=== PATIENT | female | born 1960 | race Caucasian/White ===

== ENCOUNTER 2021-07-23 07:31 | Outpatient (REF) | payer BC, SELFPAY ==
[2021-07-23 08:43] LABS: Alanine Aminotransferase 53 U/L (0-31); Albumin Level 4.2 g/dL (3.5-5.0); Alkaline Phosphatase 82 U/L (39-117); Aspartate Amino Transferase 43 U/L (5-31); Bilirubin Direct 0.2 mg/dL (0.0-0.5); Bilirubin Total 0.5 mg/dL (0.0-1.0); Cholesterol 196 mg/dL; HDL Cholesterol 68 mg/dL; LDL Cholesterol Calculated 114 mg/dl; Total Protein 7.3 g/dL (6.5-8.0); Triglycerides 72 mg/dL
[2021-07-23 09:05] LABS: Free T4 (Free Thyroxine) 0.76 ng/dL (0.71-1.85)
[2021-07-25 16:22] LABS: Triiodothyronine T3 Free 2.7 pg/mL (2.3-4.2)
[2021-07-27 17:32] LABS: Calcium, Ionized 5.2 mg/dL (4.8-5.6)
== END 2021-07-23 07:32 | disposition home or self-care (01) ==
LOC: HO.LAB 07:31
PROVIDERS: Absent Provider Internal Medicine; PCP Internal Medicine; Visit Provider Family Medicine
DX: E78.2 Mixed hyperlipidemia (principal); R74.01 Elevation of levels of liver transaminase levels; E03.8 Other specified hypothyroidism; M67.442 Ganglion, left hand
CPT/HCPCS: 36415; 80061; 80076; 82330; 84439; 84443; 84481

== ENCOUNTER 2022-05-05 07:58 | Outpatient (REF) | payer BC, SELFPAY ==
--- NOTE | ~2022-05-05 | MM_ITS ---
EXAMINATION: MM SCREENING DIGITAL BREAST TOMOSYNTHESIS, BILATERAL CLINICAL INFORMATION: Screening. Asymptomatic. The lifetime risk of breast cancer based on the Tyrer-Cuzick Model is 8%. COMPARISON: Mammography: 10/03/2019, 09/06/2018, 05/26/2017 TECHNIQUE: Digital breast tomosynthesis is performed in both the craniocaudal and mediolateral oblique views along with computer-aided detection (CAD). Synthesized 2D images are generated from the tomosynthesis. FINDINGS: There are scattered areas of fibroglandular density (ACR BI-RADS breast composition Category b). There are no significant masses, abnormal calcifications, or other abnormalities. Parenchymal pattern is similar to prior studies. No developing density or architectural abnormality. Mild bilateral nipple retraction is a chronic finding. MM/MM tomosynthesis screening BI IMPRESSION: No mammographic evidence of malignancy. ASSESSMENT: BI-RADS 2: Benign RECOMMENDATION: Routine annual mammography screening. This patient's information was entered into a reminder system with a target due date for their next mammogram.
== END 2022-05-05 07:59 | disposition home or self-care (01) ==
LOC: HO.MAMMO 07:58
PROVIDERS: Visit Provider Internal Medicine
DX: Z12.31 Encounter for screening mammogram for malignant neoplasm of breast (principal)
CPT/HCPCS: 77063; 77067

== ENCOUNTER 2022-10-26 11:29 | Outpatient (REF) | payer BC, SELFPAY ==
--- NOTE | ~2022-10-26 | XR_ITS ---
EXAMINATION: XR CHEST XR HAND, LEFT CLINICAL INFORMATION: Preop, malignant neoplasm of endometrium. COMPARISON: Chest 2 views 01/08/2007. TECHNIQUE: Chest 2 views. Left hand 3 views. FINDINGS: Chest: Both lungs are fairly well-expanded and clear of acute pneumonic process. Heart size and pulmonary vascularity is normal. No gross bony abnormality seen. Left Hand: There is mild loss of PIP and DIP joint space of all digits without bony erosive changes or enthesophytes. There is mild soft tissue swelling PIP joints 2nd through 5th digit. XR/XR hand LT min 3V IMPRESSION: 1. Unremarkable chest exam. 2. Mild degenerative changes PIP and DIP joints left hand. No visible acute fracture or dislocation seen. Mild soft tissue swelling PIP joints 2nd through 5th digits.
--- NOTE | ~2022-10-26 | XR_ITS ---
EXAMINATION: XR CHEST XR HAND, LEFT CLINICAL INFORMATION: Preop, malignant neoplasm of endometrium. COMPARISON: Chest 2 views 01/08/2007. TECHNIQUE: Chest 2 views. Left hand 3 views. FINDINGS: Chest: Both lungs are fairly well-expanded and clear of acute pneumonic process. Heart size and pulmonary vascularity is normal. No gross bony abnormality seen. Left Hand: There is mild loss of PIP and DIP joint space of all digits without bony erosive changes or enthesophytes. There is mild soft tissue swelling PIP joints 2nd through 5th digit. XR/XR chest 2V IMPRESSION: 1. Unremarkable chest exam. 2. Mild degenerative changes PIP and DIP joints left hand. No visible acute fracture or dislocation seen. Mild soft tissue swelling PIP joints 2nd through 5th digits.
--- NOTE | ~2022-10-26 | CT_ITS ---
EXAMINATION: CT ABDOMEN AND PELVIS WITH CONTRAST CLINICAL INFORMATION: Malignant neoplasm of the endometrium COMPARISON: None TECHNIQUE: Multidetector volumetric images were obtained from the superior aspect of the liver through the pubic symphysis following administration 85 mL of Omnipaque 350 intravenous contrast. Sagittal and coronal reformatted images were obtained on the technologist's workstation. This CT examination was performed using dose optimization techniques as appropriate, variously including the following: *Automated exposure control *Adjustment of mA and/or kV according to patient size (this includes techniques or standardized protocols for targeted exams where dose is matched to indication/reason for exam; i.e. extremities or head) *Use of iterative reconstruction technique DLP: 319 mGy-cm FINDINGS: Visualized lung bases are well aerated. The liver demonstrates normal size, contour and attenuation. The gallbladder is normal in appearance. The pancreas, spleen and adrenal glands are unremarkable. Symmetrically enhancing kidneys. There is no hydronephrosis of either kidney. The stomach is decompressed. Normal caliber loops of small and large bowel. Mild colonic stool burden. Normal caliber abdominal aorta demonstrating only minimal atherosclerotic disease. No retroperitoneal lymphadenopathy. The bladder is normal in appearance. Anteverted uterus demonstrating a thickened endometrium measuring up to 1.9 cm in thickness. Suspected partially calcified 1.5 cm fibroid of the uterine fundus. No gross free pelvic fluid. No inguinal lymphadenopathy. No acute osseous abnormality. CT/CT abdomen pelvis w IV con IMPRESSION: 1. Anteverted uterus demonstrating a thickened endometrium measuring up to 1.9 cm in thickness. Suspected partially calcified 1.5 cm fibroid of the uterine fundus. Further evaluation with dedicated pelvic ultrasound recommended. 2. No CT evidence for metastatic disease within the abdomen or pelvis. Fleischner guidelines were followed.
[2022-10-26] MEDS: Barium Sulfate Oral (Mocha) 450 ML ORAL.SUSP 900 ML PO (14:40)
[2022-10-26] MEDS: iohexoL 350 MG/ML 100 ML INFUS..BTL IV (14:40)
[2022-10-27 07:31] LABS: Creatinine POC 0.6 mg/dL (0.5-1.4); GFR POC > 60
[2022-10-27 09:02] LABS: CA-125 7 U/mL (<35)
== END 2022-10-26 11:30 | disposition home or self-care (01) ==
LOC: HO.CT 11:29
PROVIDERS: Absent Provider Internal Medicine; PCP Internal Medicine; Visit Provider Obstetrics & Gynecology
DX: Z01.818 Encounter for other preprocedural examination (principal); C54.1 Malignant neoplasm of endometrium; M79.642 Pain in left hand
CPT/HCPCS: 36415; 71046; 73130; 74177; 82565; 86304; Q9967

== ENCOUNTER 2023-06-23 07:51 | Outpatient (REF) | payer BC, SELFPAY ==
[2023-06-23 08:16] LABS: MANUAL DIFF FLAG NO
[2023-06-23 09:11] LABS: Basophils Percent Auto 1.1 % (0-2); Eosinophils Absolute Auto 0.1 X10*3/uL (0.0-0.4); Eosinophils Percent Auto 3.9 % (0-4); Hematocrit 45.9 % (37.0-47.0); Lymphocytes Absolute Auto 1.5 X10*3/uL (1.2-4.9); Lymphocytes Percent Auto 42.7 % (20-40); Mean Corpuscular HGB Conc 32.7 g/dl (31.0-35.0); Mean Corpuscular Volume 94.8 fL (80.0-98.0); Mean Platelet Volume 10.4 fL (9.4-12.3); Monocytes Absolute Auto 0.3 X10*3/uL (0.1-1.2); Neutrophils Absolute Auto 1.6 x10*3/uL (2.0-8.3); Neutrophils Percent Auto 45.3 % (45-73); Platelet Count 239 X10*3/uL (160-400); Red Blood Count 4.84 X10*6/uL (4.20-5.50); White Blood Count 3.6 X10*3/uL (4.8-10.8)
[2023-06-23 10:24] LABS: Alanine Aminotransferase 77 U/L (0-31); Albumin Level 4.4 g/dL (3.5-5.0); Alkaline Phosphatase 78 U/L (39-117); Aspartate Amino Transferase 52 U/L (5-31); Bilirubin Total 0.8 mg/dL (0.0-1.0); Blood Urea Nitrogen 16 mg/dL (9-16); Calcium 10.3 mg/dL (8.4-10.2); Chloride 104 mmol/L (96-108); Cholesterol 213 mg/dL; Estimated Glomerular Filt Rate 58; Glucose Random 89 mg/dL (60-115); HDL Cholesterol 84 mg/dL; LDL Cholesterol Calculated 111 mg/dl; Potassium 4.6 mmol/L (3.3-5.1); Sodium 143 mmol/L (135-145); Triglycerides 94 mg/dL
[2023-06-23 10:50] LABS: Anion Gap 19 (12-20); Carbon Dioxide 25 mmol/L (22-29)
[2023-06-23 11:07] LABS: Free T4 (Free Thyroxine) 0.82 ng/dL (0.71-1.85)
== END 2023-06-23 07:52 | disposition home or self-care (01) ==
LOC: HO.LAB 07:51
PROVIDERS: PCP Internal Medicine; Visit Provider Internal Medicine
DX: Z00.00 Encounter for general adult medical examination without abnormal findings (principal); R53.83 Other fatigue; E78.2 Mixed hyperlipidemia
CPT/HCPCS: 36415; 80053; 80061; 84439; 84443; 85025

== ENCOUNTER 2024-04-17 06:22 | Outpatient (REF) | payer BC, SELFPAY ==
[2024-04-17 08:46] LABS: Alanine Aminotransferase 26 U/L (0-31); Albumin Level 4.1 g/dL (3.5-5.0); Alkaline Phosphatase 58 U/L (39-117); Anion Gap 12 (12-20); Aspartate Amino Transferase 28 U/L (5-31); Bilirubin Total 0.6 mg/dL (0.0-1.0); Blood Urea Nitrogen 17 mg/dL (9-16); Calcium 9.6 mg/dL (8.4-10.2); Carbon Dioxide 30 mmol/L (22-29); Chloride 105 mmol/L (96-108); Estimated Glomerular Filt Rate 57; Glucose Random 81 mg/dL (60-115); HDL Cholesterol 87 mg/dL (>40); Potassium 4.1 mmol/L (3.3-5.1); Sodium 143 mmol/L (135-145); Total Protein 7.3 g/dL (6.5-8.0)
== END 2024-04-17 06:23 | disposition home or self-care (01) ==
LOC: HO.LAB 06:22
PROVIDERS: PCP Internal Medicine; Visit Provider Internal Medicine
DX: E78.2 Mixed hyperlipidemia (principal)
CPT/HCPCS: 36415; 80053; 83718

== ENCOUNTER 2024-07-25 15:22 | Outpatient (REF) | payer BC, SELFPAY ==
--- NOTE | ~2024-07-25 | MM_ITS ---
EXAMINATION: MM SCREENING DIGITAL BREAST TOMOSYNTHESIS, BILATERAL CLINICAL INFORMATION: Screening. Asymptomatic. COMPARISON: Mammography: Comparison is made with available priors TECHNIQUE: Digital breast mammography with tomosynthesis is performed in both the craniocaudal and mediolateral oblique views along with computer-aided detection (CAD). FINDINGS: There are scattered areas of fibroglandular density (ACR BI-RADS breast composition Category b). There are no significant masses, abnormal calcifications, or other abnormalities. MM/MM tomosynthesis screening BI IMPRESSION: No mammographic evidence of malignancy. ASSESSMENT: BI-RADS BI-RADS 1 - Negative RECOMMENDATION: Routine annual mammography screening. 1 year F/U This examination should not preclude the clinical evaluation of a suspicious palpable abnormality. This patient's information was entered into a reminder system with a target due date for their next mammogram. Electronically signed by: Vibha Covington DO 08/11/2024 03:00 PM EROS
== END 2024-07-25 15:23 | disposition home or self-care (01) ==
LOC: HO.MAMMO 15:22
PROVIDERS: PCP Internal Medicine; Visit Provider Internal Medicine
DX: Z12.31 Encounter for screening mammogram for malignant neoplasm of breast (principal)
CPT/HCPCS: 77063; 77067

== ENCOUNTER → 2024-07-25 15:30 | Outpatient (BNV) | payer BC, SELFPAY | PROVIDERS: PCP Internal Medicine; Visit Provider Internal Medicine | DX: Z12.31 Encounter for screening mammogram for malignant neoplasm of breast (principal) | CPT/HCPCS: 77063; 77067 ==

== ENCOUNTER 2025-09-05 15:19 | Outpatient (REF) | payer BC, SELFPAY ==
--- OUTSIDE RECORDS SUMMARY | 2025-03-26 10:40 | XMS_ITS ---
Author Organization [facility] Address [address], [place] [id number] Care Team Providers Care Head Athletic Trainer Name Role Phone ZAID MOHAMUD Primary Care Provider REASON FOR VISIT endometrial cancer Encounters Encounter Location Date Provider Diagnosis [facility] [address] [place] [address] 03/26/2025 ZAID MOHAMUD PLAN OF TREATMENT No Information
--- OUTSIDE RECORDS SUMMARY | 2025-03-27 10:30 | XMS_ITS ---
Author Organization [facility] Address [address], [place] [id number] Care Team Providers Care Block Cableman Name Role Phone ZAID MOHAMUD Primary Care Provider ALLERGIES Allergen (clinical drug ingredient) Drug/Non Drug Allergy documented on EMR Reaction Allergy Type Onset Date Status SKIN CLEANSER COMBINATION NO. 4 (uncoded) MINOCIN Allergy Active TOPICAL AGENT COMBINATION NO.3 (uncoded) MINOCIN Allergy Active ampicillin Ampicillin Unknown Drug Allergy Activ e Emollient Base MINOCIN Drug Allergy Ac tive Minocycline HCl MINOCIN Drug Allergy A ctive Substance with penicillin structure and antibacterial mechanism of action (substance) Penicillins Unknown Drug Allergy Active sulfanilamide Sulfanilamide Unknown Drug Allergy Active REASON FOR VISIT UC sinusitis MEDICATIONS Medication SIG (Take, Route, Frequency, Duration) Notes Start Date End Date Status Atorvastatin Calcium 10 MG 1 tablet Oral Once a day for 90 days 03/24/2023 Active Zithromax Z-Clarke 250 MG Therapy Pack Oral ly 2 tabs Day 1, then 1 tab daily x 4 days for 5 days 03/27/2025 Active SOCIAL HISTORY Tobacco Use: Social History Observation Description Date Details (start date - stop date) Never Smoker NA - NA Sex Assigned At : Social History Observation Description Sex Assigned At Unknown Smoking Question Answer Notes Are you a: never smoker PROBLEMS Problem Type ICD Code Onset Dates Problem Status W/U Status Risk SNOMED Code Notes Problem Endometrial cancer (C54.1) Active confirmed 535737182 Problem Acute non-recurrent frontal sinusitis (J01.10) Active confirmed 24056000 VITAL SIGNS Height 62 in 03/27/2025 Weight 113.6 lbs 03/27/2025 Blood pressure systolic 126 mm Hg 03/27/20 25 Blood pressure diastolic 76 mm Hg 025 BMI 20.78 kg/m2 03/27/2025 Encounters Encounter Location Date Provider Diagnosis [facility] [address] [place] [address] 03/27/2025 ZAID MOHAMUD Acute non-recurrent frontal sinusitis J01.10 ; Trigger thumb, left thumb M65.312 ; Endometrial cancer C54.1 and Weight loss R63.4 ASSESSMENTS Encounter Date Diagnosis Assessment Notes Treatment Notes Treatment Clinical Notes Section Notes 03/27/2025 Acute non-recurrent frontal sinusitis (ICD-10 - J01.10) 1. Sinusitis: Will cover with Zithromax and continue irrigation 2. Left trigger thumb: She is considering whether she would like to return to Dr. Frandy Castro who she is seen in the past 3. endometrial cancer: Small recurrence in the vaginal cuff. Surgery is planned and we will follow with Dr. Brush 4. Weight loss: Will check thyroid function 03/27/2025 Trigger thumb, left thumb (ICD-10 - M65.312) 1. Sinusitis: Will cover with Zithromax and continue irrigation 2. Left trigger thumb: She is considering whether she would like to return to Dr. Frandy Castro who she is seen in the past 3. endometrial cancer: Small recurrence in the vaginal cuff. Surgery is planned and we will follow with Dr. Brush 4. Weight loss: Will check thyroid function 03/27/2025 Endometrial cancer (ICD-10 - C54.1) 1. Sinusitis: Will cover with Zithromax and continue irrigation 2. Left trigger thumb: She is considering whether she would like to return to Dr. Frandy Castro who she is seen in the past 3. endometrial cancer: Small recurrence in the vaginal cuff. Surgery is planned and we will follow with Dr. Brush 4. Weight loss: Will check thyroid function 03/27/2025 Weight loss (ICD-10 - R63.4) 1. Sinusitis: Will cover with Zithromax and continue irrigation 2. Left trigger thumb: She is considering whether she would like to return to Dr. Frandy Castro who she is seen in the past 3. endometrial cancer: Small recurrence in the vaginal cuff. Surgery is planned and we will follow with Dr. Brush 4. Weight loss: Will check thyroid function PLAN OF TREATMENT Medication Medication Name Sig Start Date Stop Date Notes Zithromax Z-Clarke 250 MG Therapy Pack Oral ly 2 tabs Day 1, then 1 tab daily x 4 days for 5 days 03/27/2025 Progress Notes * Examination Category Sub-Category Detail Notes Category Not es General Examination HEENT: NC/AT, EOMI,PERRL, an d TM's WNL Neck: no lymphadenopathy Heart: RSR, normal S1S2 Lungs: clear to auscultatio n Extremities: no edema General Appearance no apparent distress , pleasant Oral cavity: pharnyx and tonsils normal Psych: alert, oriented X 3 Other normal affect History and Physical Notes * HPI (History of Present Illness) Category Sub-Category Detail Notes Category Not es General Patient had a recurrence of Endometrial cancer in vaginal cuff - looked like a skin tag - had negative PET - to have surgical removal 2 weeks ago had sinus sx when returned from [place] - was given Clartin and Flonase at Urgent Care - no better Copious mucus - often green
--- OUTSIDE RECORDS SUMMARY | 2025-03-31 05:52 | XMS_ITS ---
Author Organization [facility] Address [address] [place], [place] [phone] Care Team Providers Care Ring Maker Name Role Phone ZAID MOHAMUD Primary Care Provider REASON FOR VISIT thyroid lab results Encounters Encounter Location Date Provider Diagnosis [facility] [address] [place] [address] 03/31/2025 ZAID MOHAMUD Abnormal TSH R79.89 ASSESSMENTS Encounter Date Diagnosis Assessment Notes Treatment Notes Treatment Clinical Notes Section Notes 03/31/2025 Abnormal TSH (ICD-10 - R79.89) PLAN OF TREATMENT No Information
--- OUTSIDE RECORDS SUMMARY | 2025-05-05 10:55 | XMS_ITS ---
Author Organization [facility] Address [address] [place], [place] [phone] Care Team Providers Care Scroll Shear Operator Name Role Phone ZAID MOHAMUD Primary Care Provider REASON FOR VISIT (W-05/05/25) Bloodwork for Thyroid abnormal rating... Encounters Encounter Location Date Provider Diagnosis [facility] [address] [place] [address] 05/05/2025 ZAID MOHAMUD PLAN OF TREATMENT No Information
--- OUTSIDE RECORDS SUMMARY | 2025-05-06 08:55 | XMS_ITS ---
Author Organization [facility] Address [address] [place], [place] [phone] Care Team Providers Care Appointment Setter Name Role Phone ZAID MOHAMUD Primary Care Provider [phone] REASON FOR VISIT RE:Bloodwork for Thyroid abnormal rating... Encounters Encounter Location Date Provider Diagnosis [facility] [address] [place] [address] 05/06/2025 ZAID MOHAMUD PLAN OF TREATMENT No Information
--- OUTSIDE RECORDS SUMMARY | 2025-05-07 02:24 | XMS_ITS ---
Author Organization [facility] Address [address] [place], [place] [phone] Care Team Providers Care Event Decorator And Designer Name Role Phone ZAID MOHAMUD Primary Care Provider REASON FOR VISIT lab PROBLEMS Problem Type ICD Code Onset Dates Problem Status W/U Status Risk SNOMED Code Notes Problem Subclinical hyperthyroidism (E05.90) Active confirmed 441201368 Encounters Encounter Location Date Provider Diagnosis [facility] [address] [place] [address] 05/07/2025 ZAID BUSCHFORD Subclinical hyperthyroidism E05.90 ASSESSMENTS Encounter Date Diagnosis Assessment Notes Treatment Notes Treatment Clinical Notes Section Notes 05/07/2025 Subclinical hyperthyroidism (ICD-10 - E05.90) PLAN OF TREATMENT Future Test Test Name Order Date T4 Free Direct (Thyroxine)-[id number] 2024 TSH-[id number] 05/07/2025
--- OUTSIDE RECORDS SUMMARY | 2025-07-08 08:36 | XMS_ITS ---
Author Organization [facility] Address [address], [place] [phone] Care Team Providers Care Manifold Builder Name Role Phone ZAID MOHAMUD Primary Care Provider REASON FOR VISIT Pinched Nerve Encounters Encounter Location Date Provider Diagnosis [facility] [address] [place] [address] 07/08/2025 ZAID MOHAMUD PLAN OF TREATMENT No Information
--- OUTSIDE RECORDS SUMMARY | 2025-07-11 12:00 | XMS_ITS ---
Author Organization [facility] Address [address] [place], [place] [phone] Care Team Providers Care Fine Jewelry Sales Associate Name Role Phone ZAID MOHAMUD Primary Care [...] Sulfanilamide Unknown Drug Allergy Active REASON FOR REFERRAL Reason Appt PT Eval and jon at Diagnosis 1 Cervical radiculopat hy (M54.12) Referral Organization [facility] Referring Provider First Name ZAID Referring Provider Last Name CADE Referring Provider Speciality Internal M edicine Referred Provider Specialty Physical The rapy Referral Priority Routine REASON FOR VISIT Pinched Nerve MEDICATIONS Medication SIG (Take, Route, Frequency, Duration) Notes Start Date End Date Status Atorvastatin Calcium 10 MG 1 tablet Oral ly Once a day for 90 days Active SOCIAL HISTORY Tobacco Use: Social History Observation Description Date Details (start date - stop date) Never Smoker NA - NA Sex Assigned At : Social History Observation Description Sex Assigned At Unknown Smoking Question Answer Notes Are you a: never smoker PROBLEMS Problem Type ICD Code Onset Dates Problem Status W/U Status Risk SNOMED Code Notes Problem Cervical radiculopathy (M54.12) Active confirmed 28021609 VITAL SIGNS Height 62 in 07/11/2025 Weight 117.6 lbs 07/11/2025 Blood pressure systolic 118 mm Hg 07/11/20 25 Blood pressure diastolic 76 mm Hg 025 BMI 21.51 kg/m2 07/11/2025 Encounters Encounter Location Date Provider Diagnosis [facility] [address] [place] [address] 07/11/2025 ZAID MOHAMUD Cervical radiculopat hy M54.12 ASSESSMENTS Encounter Date Diagnosis Assessment Notes Treatment Notes Treatment Clinical Notes Section Notes 07/11/2025 Cervical radiculopathy (ICD-10 - M54.12) 1. Cervical radiculopathy: Suspected clinically by history and on exam. Will refer for physical therapy and if not beneficial pursue advanced imaging. Will also attempt an EMG. PLAN OF TREATMENT Pending Test Test Name Order Date EMG Upper Extremity Bilateral 07/11/2025 Referrals Referral Date Details Appt PT Eval and jon at Progress Notes * Examination Category Sub-Category Detail Notes Category Not es General Examination Heart: RSR, normal S1S2 Lungs: clear to auscultatio n Extremities: no edema General Appearance no apparent distress , pleasant Psych: alert, oriented X 3 Other normal affect Musculoskeletal Some pain with range of motion of the neck Mild tenderness to palpation over the cervical spinous processes History and Physical Notes * HPI (History of Present Illness) Category Sub-Category Detail Notes Category Not es General Patient present s with intermittent pain in her hands. She awakens with symptoms at night and reports they are severe at times. She reports symptoms alternate from 1 side to the other and are not usually bilateral simultaneously. She has some neck stiffness. She gets some numbness and tingling in the upper extremities. She has not had a loss of strength. Consultation Request Notes Referral Date Referring Provider Referred Provider Not es 07/11/2025 ZAID MOHAMUD , Appt PT Eval a nd treat
--- OUTSIDE RECORDS SUMMARY | 2025-08-05 11:34 | XMS_ITS ---
Author Organization [facility] Address [address] [place], [place] [phone] Care Team Providers Care Clinical Biostatistics Director Name Role Phone ZAID MOHAMUD Primary Care Provider REASON FOR VISIT New Refill Request Encounters Encounter Location Date Provider Diagnosis [facility] [address] [place] [address] 08/05/2025 ZAID MOHAMUD PLAN OF TREATMENT No Information
--- OUTSIDE RECORDS SUMMARY | 2025-08-18 08:34 | XMS_ITS ---
Author Organization [facility] Address [address], [place] [address] Care Team Providers Care Collar Baster Name Role Phone ZAID MOHAMUD Primary Care Provider REASON FOR VISIT 2 things... EMG and DNA Encounters Encounter Location Date Provider Diagnosis [facility] [address] [place] [address] 08/18/2025 ZAID MOHAMUD PLAN OF TREATMENT No Information
--- NOTE | ~2025-09-05 | MM_ITS ---
EXAMINATION: MM SCREENING DIGITAL BREAST TOMOSYNTHESIS, BILATERAL CLINICAL INFORMATION: Screening. Asymptomatic. COMPARISON: Mammography: Comparison is made with available priors TECHNIQUE: Digital breast mammography with tomosynthesis is performed in both the craniocaudal and mediolateral oblique views along with computer-aided detection (CAD). FINDINGS: There are scattered areas of fibroglandular density. There are no significant masses, abnormal calcifications, or other abnormalities. MM/MM tomosynthesis screening BI IMPRESSION: No mammographic evidence of malignancy. ASSESSMENT: BI-RADS Category 1: Negative RECOMMENDATION: Routine annual mammography screening. 1 year F/U This examination should not preclude the clinical evaluation of a suspicious palpable abnormality. This patient's information was entered into a reminder system with a target due date for their next mammogram. Electronically signed by: Vibha Covington DO 09/08/2025 05:51 PM EDT
--- OUTSIDE RECORDS SUMMARY | 2025-09-05 17:51 | XMS_ITS | Clinical Summary ---
Author Organization [facility] Address [address] [place] [address] Phone Care Team Providers Care Ironer Name Role Phone Dominick Parekh MD Primary Care Provider [phone] Derick Brush MD Unavailable [phone] Allergies Active Allergy Reactions Criticality Noted Date Comments Penicillins 07/03/2022 Sulfa (Sulfonamide Antibiotics) 06/20 Medications No known medications Active Problems No known active problems Immunizations Immunization Administration Dates Next Due Tdap 07/03/2022 Social History Tobacco Use Types Packs/Day Years Used Date Smoking Tobacco: Never Smokeless Tobacco: Never Alcohol Use Standard Drinks/Week Comments Yes 2 (1 standard drink = 0.6 oz pur e alcohol) Education Answer Date Recorded Are you interested in more education? Not on teresa e 03/17/2023 Are you concerned about learning? Not on file 03/17/2023 No 03/17/2023 No 03/17/2023 Digital Access Answer Date Recorded No 04/14/2023 No 04/14/2023 Reliable internet access at home? Not on file 04/14/2023 Device with a working camera? Not on file Comments No Sex and Gender Information Value Date Recorded Sex Assigned at Female 07/03/2022 4:35 PM EDT Legal Sex Female 9:46 PM EDT Gender Identity Female 07/03/2022 4:35 PM EDT Sexual Orientation Not on file Last Filed Vital Signs Vital Sign Reading Time Taken Comments Blood Pressure 142/87 07/03/2022 5:23 PM EDT Pulse 62 09/02/2014 11:49 AM EDT Temperature 36.9 C (98.4 F) 07/03/2022 5:23 PM EDT Respiratory Rate - - Oxygen Saturation 100% 07/03/2022 5:23 PM EDT Inhaled Oxygen Concentration - - Weight 54.4 kg (120 lb) 04/04/2023 2:32 PM EDT Height 157.5 cm (5' 2 ) 04/04/2023 2:32 PM EDT Body Mass Index 21.95 04/04/2023 2:32 PM EDT Plan of Treatment Health Maintenance Due Date Last Done Comments LIPID PANEL 1961 DEPRESSION SCREENING 1973 HEPATITIS C SCREENING 1979 HIV ONE-TIME SCREENING (18-65 YEARS) 1979 PAP SMEAR 1982 COLOGUARD 2006 COLONOSCOPY 2006 COLORECTAL CANCER SCREENING 2006 FIT TEST 2006 FOBT 2006 SIGMOIDOSCOPY 2006 VIRTUAL COLONOSCOPY 2006 PNEUMOCOCCAL VACCINES (50+ years) (1 of 1 - PCV) 2011 ZOSTER VACCINES (1 of 2) 2011 MAMMOGRAM 04/10/2025 04/10/2023 INFLUENZA VACCINE (#1) 2025 2, 09/01/2020, 01/28/2020 COVID-19 VACCINE (2024- season) 2025 08/07/2022, 03/27/2022, 10/12/2021, Additional history exists Adult Td,Tdap Booster 07/03/2032 07/03/2022 RSV VACCINE (1 - 1-dose 75+ series) 2036 SMOKING STATUS SCREENING (Once After 26 Yrs) Completed 07/04/2022 HEPATITIS A VACCINES Aged Out No long er eligible based on patient's age to complete this topic HIB VACCINES Aged Out No longer eligi ble based on patient's age to complete this topic MENINGOCOCCAL VACCINES (ACWY) Aged Out No longer eligible based on patient's age to complete this topic MENINGOCOCCAL VACCINES (B) Aged Out N o longer eligible based on patient's age to complete this topic Medical Devices Not on file Procedures Procedure Name Priority Date/Time Associated Diagnosis Comments BI MRI BREAST WITH AND WITHOUT CONTRAST (BILATERAL) Routine 04/10/2023 7:09 PM EDT Malignant neoplasm of endometrium from Last 3 Months or Most Recently Relevant to Health Maintenance Results * BI MRI BREAST WITH AND WITHOUT CONTRAST (BILATERAL) (04/10/2023 7:09 PM EDT) Anatomical Region Laterality Modality Breast Left, Breast Right, Breast Bilateral Bila teral Magnetic Resonance 04/14/2023 12:5 3 PM EDT Impressions 04/14/2023 1:22 PM EDT No evidence of malignancy. BI-RADS Category 1, negative Narrative 04/14/2023 1:22 PM EDT History: Nipple inversion. History of GEOLOGIST cancer (endometrial CA) status post hysterectomy. PROCEDURE: Bilateral breast imaging performed prior to and during dynamic infusion of IV gadolinium. Subtracted postcontrast enhanced images available. Sagittal reconstructions. FINDINGS: No prior breast imaging available for comparison/correlation. Breast tissue consists of a combination of fatty and fibroglandular elements. Background parenchymal enhancement: Moderate right and mild left. Bilateral nipple inversion evident. T2 bright signal extends along ductal system immediately posterior to the nipple bilaterally, fairly symmetric appearance evident. No discrete mass evident affecting either breast. No aggressive enhancement. No concerning incidental abnormality identified affecting chest wall, lungs or upper abdomen. Procedure Note El Kemp MD - 04/14/2023 History: Nipple inversion. History of GEOLOGIST cancer (endometrial CA) statuspost hysterectomy. PROCEDURE: Bilateral breast imaging performed prior to and during dynamicinfusion of IV gadolinium. Subtracted postcontrast enhanced imagesavailable. Sagittal reconstructions. FINDINGS: No prior breast imaging available for comparison/correlation. Breast tissue consists of a combination of fatty and fibroglandularelements. Background parenchymal enhancement: Moderate right and mild left. Bilateral nipple inversion evident. T2 bright signal extends along ductalsystem immediately posterior to the nipple bilaterally, fairly symmetricappearance evident. No discrete mass evident affecting either breast. Noaggressive enhancement. No concerning incidental abnormality identified affecting chest wall,lungs or upper abdomen. IMPRESSION: No evidence of malignancy. BI-RADS Category 1, negative Clifford ADDISON IMG MR BREAST Final Result from Last 3 Months or Most Recently Relevant to Health Maintenance Insurance [place] [address] [place] [address]O POS [facility] [place] [address] [place] [address] [place] [address] [place] [address] [place]MO [place] [address] [place] [address] [place] [address] [facility] HMO POS [facility] [place] [address] [place] [address] Care Teams Ironer Relationship Specialty Start Date End Date Dominick Parekh MD [address] [place] [address] PCP - General 09/04/17 Derick Brush MD [address] [place] [address] 4B_OB/[place] [address] Obstetrics and Gynecology 12/19/22 Additional Source Comments The information contained in this document represents components of the legal health record. It is not the complete legal health record.[facility]
--- OUTSIDE RECORDS SUMMARY | 2025-09-05 17:52 | XMS_ITS | Patient Health Record ---
Author Organization [facility] Address [address] [place], [place] [id number] Care Team Providers Care Cognos Name Role Phone ZAID MOHAMUD Primary Care [...] Unknown Drug Allergy Active REASON FOR REFERRAL Referral Organization [facility] Referring Provider First Name ZAID Referring Provider Last Name MIAMI Referring Provider Speciality Internal edicine Referred Provider REGGIE BRUSH Referred Provider Specialty OB - Gynecol ogy General Notes Oumou HARRIS Referrals 12/30/2024 09:02:27 AM > referral request received from [facility] child study team director oncology, Endometrial Cancer Z85.40, fax: [phone], Oumou HARRIS Referrals 12/30/2024 09:08:17 AM > referral approved and faxed to [phone] Referral Priority Routine Referral Appointment Date 01/02/2025 Reason N95.1 Referral Organization [facility] [employer] Referring Provider First Name ZAID Referring Provider Last Name MIAMI Referring Provider Speciality Internal M edicine Referred Provider Specialty Unknown General Notes Megan HARRIS 12:18:38 PM > per incoming document from [facility] Urogynocology pt has an appt for 04/15/25>rfeferral approved and faxed to [phone]>encounter closed Referral Priority Routine Referral Appointment Date 04/15/2025 Referral Organization [facility] Referring Provider First Name [facility] Referring Provider Last Name MIAMI [facility] Megan HARRIS P Admin 11:21:30 AM > per incoming document pt has appt on 05/20/25 with Jocelyne Amaro [phone] for N95.1>fax number is [phone] >referral approved and faxed to [phone]>encounter closed Referral Priority Routine Referral Appointment Date 05/20/2025 Reason Appt PT Eval and jon at Diagnosis 1 Cervical radiculopat hy (M54.12) Referral Organization [facility] Referring Provider First Name ZAID Referring Provider Last Name MIAMI [facility] Referred Provider Specialty Physical The rapy Referral Priority Routine MEDICATIONS Medication SIG (Take, Route, Frequency, Duration) Notes Start Date End Date Status Atorvastatin Calcium 10 MG 1 tablet Oral ly Once a day for 90 days Active IMMUNIZATIONS Vaccine Route Administration Date Status Comme nts Pfizer COVID-19,mRNA, LNP-S, PF, 30mcg/0.3mL dose Unknown 02/24/2021 Administered SOCIAL HISTORY Tobacco Use: Social History Observation Description Date Details (start date - stop date) Never Smoker NA - NA Sex Assigned At : Social History Observation Description Sex Assigned At Unknown Smoking Question Answer Notes Are you a: never smoker PROBLEMS Problem Type ICD Code Onset Dates Problem Status W/U Status Risk SNOMED Code Notes Problem Endometrial cancer (C54.1) Active confirmed 165499230 Problem Cervical radiculopathy (M54.12) Active confirmed 51446314 Problem Mixed hyperlipidemia (E78.2) Active confirmed 723180574 Problem Subclinical hyperthyroidism (E05.90) Active confirmed 037438895 Problem Acute non-recurrent frontal sinusitis (J01.10) Active confirmed 43321137 VITAL SIGNS Blood pressure diastolic 76 mm Hg 07/11/2025 Height 62 in 07/11/2025 Blood pressure systolic 118 mm Hg 07/11/2025 Weight 117.6 lbs 07/11/2025 BMI 21.51 kg/m2 07/11/2025 Encounters Encounter Location Date Provider Diagnosis [address] [address] 09/27/2024 [facility] [address] [place] [id number] 09/27/[address] [address] 10/07/[address] [address] 10/08/[address] [address] 12/03/2024 [facility] Acute non-recurrent frontal sinusitis J01.[address] [address] 12/06/[address] [address] 12/06/2024 [facility] Acute recurrent fron agusto sinusitis J01.[address] [address] 03/26/[address] [address] 03/26/[address] [address] 03/27/2025 [facility] Acute non-recurrent frontal sinusitis J01.10 ; Trigger thumb, left thumb M65.312 ; Endometrial cancer C54.1 and Weight loss R63.[address] [address] 03/31/2025 [facility] Abnormal TSH R79.[address] [address] 05/05/[address] [address] 05/06/[address] [address] 05/07/2025 [facility] Subclinical hyperthyroidism E05.[address] [address] 07/08/2025 [facility] [address] [place] [address] 07/11/2025 ZAID MIAMI Cervical radiculopat hy M54.12 [facility] [address] [place] [address] 08/05/2025 [facility] [address] [place] [address] 08/18/2025 ZAID [facility] Encounter Date Diagnosis Assessment Notes Treatment Notes Treatment Clinical Notes Section Notes 07/11/2025 Cervical radiculopathy (ICD-10 - M54.12) 1. Cervical radiculopathy: Suspected clinically by history and on exam. Will refer for physical therapy and if not beneficial pursue advanced imaging. Will also attempt an EMG. 05/07/2025 Subclinical hyperthyroidism (ICD-10 - E05.90) 03/31/2025 Abnormal TSH (ICD-10 - R79.89) 03/27/2025 Acute non-recurrent frontal sinusitis (ICD-10 - [...] 4. Weight loss: Will check thyroid function 12/06/2024 Acute recurrent frontal sinusitis (ICD-10 - J01.11) 1. Sinusitis: Rx Zithromax. Continue irrigation and reassess if not better 12/03/2024 Acute non-recurrent frontal sinusitis (ICD-10 - J01.10) 03/27/2025 Endometrial cancer (ICD-10 - C54.1) 1. [...] Will check thyroid function PLAN OF TREATMENT Pending Test Test Name Order Date EMG Upper Extremity Bilateral 07/11/2025 Future Test Test Name Order Date LP+Non-HDL Cholesterol-[id number] 06/13/2024 T4 Free Direct (Thyroxine)-[id number] 2024 TSH-[id number] 05/07/2025 Insurance Providers Payer Name Payer Address Payer Phone Subscriber Number Group Number Insured Name Patient Relationship to Insured Coverage Start Date Coverage End Date [employer] [address] [place] [address] [id number] LLOYD CHOPRA Self - patient is the insured MEDICAL (GENERAL) HISTORY Medical History History ICD Code 2021 Endrometrial CA TAHBSO and XRT 2024 recurrance endometrial CA Surgical History Surgery Date(Month/Year) endometrial cancer- check border from area- clean 04/2025 Lyme disease, Sx_Procedure : Drug therap y 2006 Appendicitis, Sx_Procedure : Appendectom y 1977 Disease : Cancer Endometrium, Sx_Procedu re : TAHBSO
--- OUTSIDE RECORDS SUMMARY | 2025-09-05 17:53 | XMS_ITS | Patient Health Record ---
Author Organization [facility] Address [address] [facility] [place] [address] Care Team Providers Care Labor Mediator Name Role Phone Dominick Parekh MD Primary Care Provider Unavailab Jono Barrios Unavailable [phone] Allergies Allergen (clinical drug ingredient) Drug/Non Drug Allergy documented on EMR Reaction Allergy Type Onset Date Status Substance with penicillin structure and antibacterial mechanism of action (substance) Penicillins rash, hives Drug Allergy Active Substance with sulfonamide structure and antibacterial mechanism of action (substance) Sulfa Antibiotics rash, hives Drug Allergy Active Reason For Referral No Information Medications Medication SIG (Take, Route, Frequency, Duration) Notes Start Date End Date Status Fish Oil Active Atorvastatin Calcium 5mg per day Active Calcium Magnesium 600mg/40mg A ctive Social History Tobacco Use: Social History Observation Description Date Details (start date - stop date) Never Smoker NA - NA Tobacco Use/Smoking Question Answer Notes Are you a: nonsmoker Additional Findings: Tobacco Non-User Current no n-smoker Alcohol Screen Question Answer Notes Did you have a drink containing alcohol in the p ast year? Yes Points 0 Interpretation Negative Tobacco use other than smoking: Question Answer Notes Are you an other tobacco user? No Problems Problem Type SNOMED Code ICD Code Onset Dates Problem Status W/U Status Risk Notes Problem Pain in right foot (194349752815111 ) Pain in right foot (M79.671) Active confirmed Problem Pain in left foot (360337054872253 ) Pain in left foot (M79.672) Active confirmed Problem Plantar fascial fibromatosis (45514752) Plantar fascial fibromatosis (M72.2) Active confirmed Plan Of Treatment Pending Test Test Name Order Date X ray : Foot, left 3V 06/12/2024 X ray : Foot, right 3V 06/12/2024 Insurance Providers Payer Name Payer Address Payer Phone Subscriber Number Group Number Insured Name Patient Relationship to Insured Coverage Start Date Coverage End Date [facility] [address] [place] [address] [id number] Tawanda Escoto Spouse - patient is the spouse of the insured Medical (General) History Medical History History ICD Code endometrial cancer Chicken pox Surgical History Surgery Date(Month/Year) hysterectomy 10/2022
--- OUTSIDE RECORDS SUMMARY | 2025-09-05 17:53 | XMS_ITS | Encounter Summary ---
Author Organization [facility] Address [address] [place] [address] Phone Care Team Providers Care Block Cutter Name Role Phone Dominick Parekh MD Primary Care Provider [phone] Derick Brush MD Unavailable [phone] Encounter Details Date Type Department Care Team (Late st Contact Info) Description 02/15/2023 Procedure Pass [facility], [address] [address] Social History Tobacco Use Types Packs/Day Years Used Date Smoking Tobacco: Never Smokeless Tobacco: Never Alcohol Use Standard Drinks/Week Comments Yes 2 (1 standard drink = 0.6 oz pur e alcohol) Comments No Sex and Gender Information Value Date Recorded Sex Assigned at Female 07/03/2022 4:35 PM EDT Legal Sex Female 9:46 PM EDT Gender Identity Female 07/03/2022 4:35 PM EDT Sexual Orientation Not on file documented as of this encounter Plan of Treatment Not on file documented as of this encounter Visit Diagnoses Not on filedocumented in this encounter Care Teams Block Cutter Relationship Specialty Start Date End Date Dominick Parekh MD [address] [place] [address] PCP - General 09/04/17 Derick Brush MD [address] [place] [address] 4B_OB/[place] [address] Obstetrics and Gynecology 12/19/22 documented as of this encounter Additional Source Comments The information contained in this document represents components of the legal health record. It is not the complete legal health record.[facility]
== END 2025-09-05 15:20 | disposition home or self-care (01) ==
LOC: HO.MAMMO 15:19
PROVIDERS: PCP Internal Medicine; Visit Provider Internal Medicine
DX: Z12.31 Encounter for screening mammogram for malignant neoplasm of breast (principal)
CPT/HCPCS: 77063; 77067

== ENCOUNTER → 2025-09-05 15:45 | Outpatient (BNV) | payer BC, SELFPAY | PROVIDERS: PCP Internal Medicine; Visit Provider Internal Medicine | DX: Z12.31 Encounter for screening mammogram for malignant neoplasm of breast (principal) | CPT/HCPCS: 77063; 77067 ==